=== PATIENT | male | born 1980 ===

== ENCOUNTER 2018-07-19 01:15 | Emergency (ER) | payer SELFPAY ==
[~2018-07-19] VITALS: Ht 180.3 cm; Wt 137.0 kg
[2018-07-19 07:01] VITALS: BP 135/73
== END 2018-07-19 07:04 | disposition home or self-care (01) ==
LOC: ER 01:15
DX: T16.1XXA Foreign body in right ear, initial encounter (principal); F17.200 Nicotine dependence, unspecified, uncomplicated; X58.XXXA Exposure to other specified factors, initial encounter; Y93.89 Activity, other specified; Y92.89 Other specified places as the place of occurrence of the external cause; Y99.8 Other external cause status
CPT/HCPCS: 99284